=== PATIENT | female | born 1995 | race Caucasian/White ===

== ENCOUNTER 2024-09-26 16:37 | Emergency (ER) | payer SELFPAY ==
[2024-09-26 16:45] VITALS: BP 123/71; PULSE 101; RESP 16; TEMP 36.5; O2SAT 100
--- NOTE | 2024-09-26 17:44 | ED.ABDPAIN ---
HPI - Abdominal Pain General Chief Complaint: Abdominal Pain Stated Complaint: abd pain Time Seen by Provider: 09/26/24 17:44 Focused HPI: This is a 28 year old female that presents to the ER for abdominal pain. Reports epigastric pain ongoing all day. Reports some loose stool today. No previous abdominal surgeries. Denies fever, vomiting. GENERAL: Well-appearing, well-nourished, and in no acute distress. HEAD: Normocephalic, atraumatic. CHEST: Clear to auscultation. ?No respiratory distress. HEART: Regular rate and rhythm.? NEURO: ?Alert and oriented x3. Patient screened in triage and initial orders placed.? ?Additional care and disposition to be based upon?diagnostic testing and treatment. Related Data Home Medications ?Medication ?Instructions ?Recorded ?Confirmed ?Last Taken ?Type norgestimate-ethinyl estradiol 1 tablet PO DAILY 09/29/20 Unknown History 0.18 mg/0.215mg/0.25mg-35 mcg(28)tablet (Tri-Sprintec (28)) Allergies Allergy/AdvReac Type Severity Reaction Status Date / Time No Known Allergies Allergy Verified 01/13/22 13:09 [facility], [facility] Surgical History Surgical History (System 01/13/22 @ 13:09 by Janeth Britt) History of repair of ACL 2009 Social History Social History (System 01/13/22 @ 13:09 by Janeth Britt) Smoking status: Never smoker Alcohol intake: current Substance use: never Course Vital Signs Vital signs: Vital Signs Temperature 97.7 F 09/26/24 16:45 Pulse Rate 101 H 09/26/24 16:45 Respiratory Rate 16 09/26/24 16:45 Blood Pressure 123/71 09/26/24 16:45 Pulse Oximetry 100 09/26/24 16:45 Temperature 97.7 F 09/26/24 16:45 Pulse Rate 101 H 09/26/24 16:45 Respiratory Rate 16 09/26/24 16:45 Blood Pressure 123/71 09/26/24 16:45 Pulse Oximetry 100 09/26/24 16:45 MDM - Abdominal Pain MDM Narrative Medical decision making narrative: Patient left after initial screening exam and before any further evaluation or management Discharge Plan Discharge Clinical Impression: Acute epigastric pain Patient Disposition: Elopement After Seen by Prov Condition: Guarded Prognosis Instructions: Antibiotic Form Patient Language: Khmer Prescriptions: No Action norgestimate-ethinyl estradiol [Tri-Sprintec (28)] 0.18/0.215/0.25 mg-35 mcg (28) tablet 1 tablet PO DAILY Follow-up/Referrals: PHYSICIAN NOT ON STAFF,NONSTAFF [Primary Care Provider] -
--- NOTE | 2024-09-26 19:36 | PC.NURSE ---
Pt was called twice to go back to a room and did not show up.
== END 2024-09-26 21:16 | disposition left against medical advice (07) ==
LOC: ANHED 20:59
DX: R10.13 Epigastric pain (principal)
CPT/HCPCS: 99199

== ENCOUNTER 2025-03-09 14:00 | Emergency (ER) | payer OTHER, SELFPAY ==
--- NOTE | ~2025-03-09 | XR_ITS ---
XR ankle LT min 3V Ordering provider: Elvia Baca APRN History: . 5 days inverse injury lateral malleolus . Comparison: None. FINDINGS: BONES: No acute fracture or dislocation. JOINT SPACES: The ankle mortise is normal. SOFT TISSUES: Normal. IMPRESSION: No acute osseous abnormality left ankle. Reviewed, dictated and finalized at location A.
--- OUTSIDE RECORDS SUMMARY | 2025-03-09 14:04 | XMS_ITS | Clinical Summary ---
Author Organization [address] Address [address] [place] [phone] Care Team Providers Care Bookkeeping Machine Mechanic Name Role Phone Eleuterio Mo MD Primary Care Provider +1- [phone] Allergies No known active allergies Medications sertraline (ZOLOFT) 50 mg tablet Take 1 tablet (50 mg total) by mouth daily 3 Active hydrOXYzine (ATARAX) 25 mg tablet TAKE 1 TABLET BY MOUTH THREE TIMES DAILY NEEDED FOR ANXIETY. MAY CAUSE DROWSINESS 3 Active dextroamphetami ne-amphetamine (ADDERALL) 10 mg tablet TAKE 2 TABLETS BY MOUTH EVERY MORNING AND TAKE 1 TABLET BY MOUTH EVERY DAY AT LUNCH 3 Active predniSONE (DELTASONE) 10 mg tablet Take 5 tabs (50mg) daily for 2 days, then take 4 tabs (40mg) daily for 2 days. Continue to decrease by 1 tab (10mg) every 2 days until gone. 30 tablet 3 Active azithromycin (ZITHROMAX) 250 mg tablet Take 2 tabs (500 mg) by mouth today, than 1 tab (250 mg) daily for 4 days. 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 Gender Identity Not on file Sexual Orientation Not on file Obstetrics History Last Filed Vital Signs Vital Sign Reading Time Taken Comments Blood Pressure 120/70 02/13/2023 2:51 PM CDT Pulse 90 02/13/2023 2:51 PM CDT Temperature 36.8 C (98.3 F) 02/13/2023 2:51 PM CDT Respiratory Rate 14 02/13/2023 2:51 PM CDT Oxygen Saturation 99% 02/13/2023 2:51 PM CDT Inhaled Oxygen Concentration - - Weight 57.2 kg (126 lb) 02/13/2023 2:51 PM CDT Height 175.3 cm (5' 9 ) 02/13/2023 2:51 PM CDT Body Mass Index 18.61 02/13/2023 2:51 PM CDT Plan of Treatment Health Maintenance Due Date Last Done Comments Cervical Cancer Screening 1995 Depression Screening 1995 Hepatitis C Screening 1995 DTaP/Tdap/Td Vaccine (1 - Tdap) 2006 Varicella Vaccines (1 of 2 - 13+ 2-dose series) 2008 Hepatitis B Screening 2013 Regular Well Visit/Exam 18-64 2013 Covid-19 Vaccine (2023-2 5 season) 2024 11/12/2020, 10/25/2020 Influenza Vaccine (Season Ended) 2025 HPV Vaccines Aged Out No longer eligi ble based on patient's age to complete this topic Pneumococcal vaccine <65 Aged Out No longer eligible based on patient's age to complete this topic Insurance [facility] Care Teams Bookkeeping Machine Mechanic Relationship Specialty Start Date End Date Eleuterio Mo MD [address] [facility] [place] [address] PCP - General Family Medicine 02/13/23
--- OUTSIDE RECORDS SUMMARY | 2025-03-09 14:04 | XMS_ITS | Referral Summary ---
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
--- NOTE | 2025-03-09 14:12 | ED_ITS ---
HPI - Extremity Injury (Lower) General Chief Complaint: Extremity Injury, Lower Stated Complaint: ankle injury Time Seen by Provider: 03/09/25 14:16 Source: patient, RN notes reviewed and old records reviewed Mode of arrival: ambulatory Limitations: no limitations History of Present Illness HPI Narrative: 29-year-old female presents to the [facility] with pain, swelling to the left ankle for 5 days. Patient states that she rolled her ankle while walking. Onset (ago): day(s) (5) Treatments prior to arrival: cold therapy Related Data Home Medications ?Medication ?Instructions ?Recorded ?Confirmed ?Last Taken ?Type levonorgestrel (Mirena) 1 device intrauterine ONCE 03/09/25 03/09/25 Unknown Hi story Allergies Allergy/AdvReac Type Severity Reaction Status Date / Time No Known Allergies Allergy Verified 03/09/25 14:13 Review of Systems Review of Systems: All systems reviewed & are unremarkable except as noted in HPI and below Constitutional: Constitutional: Reports no additional constitutional complaints ENT: Reports system reviewed and no additional complaints, except as documented Cardiovascular: Cardiovascular: Reports no additional cardiovascular complaints, Denies chest pain and Denies dyspnea Respiratory: Respiratory: Reports no additional respiratory complaints, Denies chest congestion, Denies cough and Denies dyspnea Musculoskeletal: Musculoskeletal: Reports as per HPI, Reports arthralgias and Reports joint swelling Integumentary/Breasts: Skin/Breast: Reports system reviewed and no additional complaints, except as docu PMFSH Surgical History Surgical History History of repair of ACL 2009 Social History Social History Smoking status: Never smoker Alcohol intake: current Substance use: never Comments At the time of my signature, I reviewed and agree with the nursing past medical, surgical, social, and family history. There is no relevant family history pertinent to the patient complaint. Exam Const: General: cooperative, healthy appearing, comfortable, no acute distress, well developed, alert and well nourished Nutritional Appearance: well nourished Orientation/consciousness: patient oriented x3 Limitations: no limitations HENMT: Head: normal to inspection Eyes: General: appearance normal, both eyes and all related structures Alignment and Position: alignment normal Neck: Neck: normal visual inspection, full ROM, no lymphadenopathy and no meningeal signs Chest: Chest palpation & inspection: normal inspection of the chest Resp: Effort & Inspection: normal respiratory effort and able to speak in complete sentences Skin: General skin exam: normal color and no rashes or lesions noted Neuro: General: patient oriented x3, gait normal, moves all extremities and no meningeal signs Cognition (Neuro): normal cognition Speech: normal speech Gait exam (Neuro): Normal gait present Extrem: General: normal to inspection, full ROM, capillary refill normal and normal gait Right lower extremity: lower leg Details: normal to inspection; no erythema and no tenderness, ankle Details: tenderness Location: of the lateral malleolus, swelling Details: laterally, normal ROM and ecchymosis (Lateral) and foot Details: normal capillary refill, toes with normal ROM, ecchymosis (Proximal lateral foot), vascular exam Details: dorsalis pedis pulse present and normal capillary refill and motor-sensory exam Details: light-touch normal; no foreign bodies and no puncture wound Psych: Appearance: grossly normal and well kempt Mental Status: mental status grossly normal Speech and movement: Normal speech and movement present and Clear speech present Affect: normal affect Attitude: cooperative Course Course Level of Care: Express Care Visit Vital Signs Vital signs: Vital Signs Temperature 97.3 F L 03/09/25 14:13 Pulse Rate 118 H 03/09/25 14:13 Respiratory Rate 18 03/09/25 14:13 Blood Pressure 136/89 03/09/25 14:13 Pulse Oximetry 100 03/09/25 14:13 Oxygen Delivery Room Air 03/09/25 14:13 Temperature 97.3 F L 03/09/25 14:13 Pulse Rate 118 H 03/09/25 14:13 Respiratory Rate 18 03/09/25 14:13 Blood Pressure 136/89 03/09/25 14:13 Pulse Oximetry 100 03/09/25 14:13 Oxygen Delivery Room Air 03/09/25 14:13 Reviewed MDM - Extremity Injury (Lower) MDM Narrative Medical decision making narrative: Patient sitting in exam room. Patient is nontoxic, vitals are stable. Patient with 5 day history of left ankle pain after injury. X-ray negative Patient appropriate for outpatient treatment with close follow-up Discharge instructions reviewed with patient, as well as provided in writing per nursing staff. The instructions also include specific and strict return/GO TO THE ER as well as f/u information. All questions have been answered, and the patient deny any further questions with discharge and discharge plan. Some parts of this dictation were generated by voice recognition software and may contain typographical and/or grammatical inaccuracies. Differential Diagnosis Differential diagnosis: Likely ankle sprain and strain and ankle fracture Imaging Data Radiologist's impression: XR ankle LT min 3V Ordering provider: Elvia Baca APRN History: . 5 days inverse injury lateral malleolus . Comparison: None. FINDINGS: BONES: No acute fracture or dislocation. JOINT SPACES: The ankle mortise is normal. SOFT TISSUES: Normal. IMPRESSION: No acute osseous abnormality left ankle. Critical Care Time Critical Care Time Critical Care Time: No Discharge Plan Discharge Clinical Impression: Left ankle sprain Patient Disposition: Home Condition: Stable Instructions: Antibiotic Form, Ankle Sprain (ED) Additional Instructions: Your Xray did not show a fracture. Wear good supportive shoes at all times. Ice should be applied to help reduce swelling. It can be used for 20 to 30 minutes, every 2-3 hours while awake. Do not apply ice directly to your skin. ankle braces or norberto-wraps will help support your injured ankle. You can alternate ibuprofen 600mg and Tylenol 650mg every 4 hours as needed for pain Please schedule a follow-up visit with your personal physician for further evaluation and treatment within 2 weeks especially if symptoms persist. For new or worsening symptoms go directly to the emergency room Patient Language: Chinese Prescriptions: No Action Mirena 21 mcg/24hr (up to 8 yrs) 52 mg intrauterine device 1 device intrauterine ONCE Rx Instructions: as a single dose Follow-up/Referrals: UNKNOWN,DOCTOR [Primary Care Provider] - Stand Alone Forms: Work/School Release IP Time of Disposition: 14:46
[2025-03-09 14:13] VITALS: BP 136/89; PULSE 118; RESP 18; TEMP 36.3; O2SAT 100
== END 2025-03-09 14:50 | disposition home or self-care (01) ==
PROVIDERS: Emergency Provider Nurse Practitioner
DX: S93.402A Sprain of unspecified ligament of left ankle, initial encounter (principal); X50.9XXA Other and unspecified overexertion or strenuous movements or postures, initial encounter; Y93.01 Activity, walking, marching and hiking
CPT/HCPCS: 73610; 99213; G0463

== ENCOUNTER 2025-04-29 00:18 | Emergency (ER) | payer OTHER, SELFPAY ==
--- OUTSIDE RECORDS SUMMARY | 2025-04-29 00:20 | XMS_ITS | Referral Summary ---
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
--- OUTSIDE RECORDS SUMMARY | 2025-04-29 00:20 | XMS_ITS | Clinical Summary ---
Author Organization [facility] Address [facility] [place] [address] Care Team Providers Care Billing Associate Name Role Phone Eleuterio Mo MD Primary Care Provider [phone] [phone] Allergies No known active allergies Medications amphetamine-dex troamphetamine (ADDERALL) 10 MG tablet Take 1 tablet (10 mg total) by mouth. 2 tablets in the am and 2 tablets at lunch 09/24/2024 Active hydrOXYzine (ATARAX) 25 MG tablet Take 1 tablet (25 mg total) by mouth every 6 (six) hours as needed. 08/24/2024 Active Active Problems Problem Noted Date Diagnosed Date Gallstone pancreatitis (HHS/HCC) 10/24/2024 Social History Tobacco Use Types Packs/Day Years Used Date Smoking Tobacco: Never Passive Smoke Exposure: Never Smokeless Tobacco: Never Tobacco Cessation:Counseling Given: Not Answered Alcohol Use Standard Drinks/Week Comments Yes 0 (1 standard drink = 0.6 oz pur e alcohol) weekly Comments No Sex and Gender Information Value Date Recorded Sex Assigned at Female 11/15/2024 6:25 AM FREIGHT ENGINEER Legal Sex Female 10:42 AM FREIGHT ENGINEER Gender Identity Not on file Sexual Orientation Not on file Last Filed Vital Signs Vital Sign Reading Time Taken Comments Blood Pressure 114/82 11/28/2024 9:17 AM FREIGHT ENGINEER Pulse 105 11/28/2024 9:17 AM FREIGHT ENGINEER Temperature 36.4 C (97.5 F) 11/15/2024 10:20 AM FREIGHT ENGINEER Respiratory Rate 16 11/28/2024 9:17 AM FREIGHT ENGINEER Oxygen Saturation 99% 11/28/2024 9:17 AM FREIGHT ENGINEER Inhaled Oxygen Concentration - - Weight 57.4 kg (126 lb 8 oz) 11/28/2024 9:17 AM FREIGHT ENGINEER Height 175.3 cm (5' 9) 11/28/2024 9:17 AM FREIGHT ENGINEER Body Mass Index 18.68 11/28/2024 9:17 AM FREIGHT ENGINEER Plan of Treatment Health Maintenance Due Date Last Done Comments Annual Physical 1998 Hepatitis C 2013 DTaP, Tdap and Td Vaccines ( 1 - Tdap) 2014 Hepatitis B Vaccines (1 of 3 - 19+ 3-dose series) 2014 COVID-19 Vaccine ( - 2023-2 5 season) 2024 PHQ-2 (Physician [place]) 10/17/2024 Cervical Cancer Screening Pa p Smear (Age 21 to 29) Every 3 Years 08/19/2026 08/19/2023 Cervical Cancer Screening 08/19/2026 HPV Vaccines Aged Out No longer eligi ble based on patient's age to complete this topic Meningococcal B Vaccine Aged Out No l onger eligible based on patient's age to complete this topic Meningococcal Vaccine Aged Out No shaun sebastian eligible based on patient's age to complete this topic Pneumococcal Vaccine: Pediat rics (0 to 5 Years) and At-Risk Patients (6 to 49 Years) Aged Out No longer eligi ble based on patient's age to complete this topic RSV Immunizations Under 20 Months Aged Out No longer eligible based on patient's age to complete this topic Insurance Care Teams Billing Associate Relationship Specialty Start Date End Date Eleuterio Mo MD [address] [place] [address] [place] [address] PCP - General FAMILY PRACTICE 10/24/24
--- OUTSIDE RECORDS SUMMARY | 2025-04-29 00:20 | XMS_ITS | Clinical Summary ---
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
[2025-04-29 00:26] VITALS: BP 140/99; PULSE 105; RESP 18; TEMP 36.6; O2SAT 100
[2025-04-29 01:40] LABS: Hematocrit 36.5 % (37.0-47.0); Hemoglobin 12.3 g/dL (12.0-15.0); Immature Granulocyte Percent A 0.3 % (0-0.5); Lymphocytes Absolute Auto 2.36 K/mm3 (0.9-3.2); Mean Corpuscular HGB Conc 33.7 g/dl (32-36); Mean Corpuscular Hemoglobin 31.9 pg (26-34); Mean Corpuscular Volume 94.8 fl (80-100); Nucleated Red Blood Cells Absolute Auto 0.000 K/mm3 (0.0-0.012); Nucleated Red Blood Cells Perc 0.0 % (0.0-0.2); Platelet Count Result 271 k/mm3 (150-375); Red Blood Count 3.85 M/mm3 (4.2-5.4); White Blood Count 6.5 K/mm3 (4.5-10.0)
[2025-04-29] MEDS: SODIUM CHLORIDE 0.9% IV 1,000 ML 999 ML IV CONT (01:51)
[2025-04-29 01:52] LABS: Alanine Aminotransferase 24 U/L (6-35); Albumin Level 4.5 g/dL (3.5-5.1); Alkaline Phosphatase 65 U/L (38-126); Anion Gap 10 mmol/L (4-12); Aspartate Amino Transferase 30 U/L (14-36); Bilirubin,Total 0.3 mg/dL (0.2-1.3); Blood Urea Nitrogen 9 mg/dL (7-17); Calcium 9.6 mg/dL (8.4-10.2); Carbon Dioxide 21 mmol/L (22-30); Chloride 108 mmol/L (98-107); Estimated CRCL calculation 88 ml/min; Estimated Glomerular Filt Rate > 60; Glucose 109 mg/dL (65-110); Magnesium 1.9 mg/dL (1.6-2.3); Potassium 3.4 mmol/L (3.4-5.0); Sodium 139 mmol/L (137-145); Total Protein 7.5 g/dL (6.3-8.2)
--- NOTE | 2025-04-29 01:57 | ED_ITS ---
HPI - Extremity Problem General Chief complaint: Extremity Problem,Nontraumatic Stated complaint: numbness in left hand, panic attacks, light headed Time Seen by Provider: 04/29/25 01:24 History of Present Illness HPI Narrative: Patient is a 29-year-old female who presents the emergency department this evening complaining of an episode of tensing of her left, describing a carpopedal spasm. Patient admits that symptoms started when she got off work and states that she did not eat much today or drink much. This episode made the patient anxious and she started to hyperventilate only worsening her symptoms and started to have hot flashes and a panic attack. Patient states that she is currently back to her baseline and denying any symptoms at this time. States she just wanted to get checked out and make sure every was fine. Related Data Home Medications ?Medication ?Instructions ?Recorded ?Confirmed ?Last Taken ?Type levonorgestrel (Mirena) 1 device intrauterine ONCE 03/09/25 03/09/25 Unknown History Allergies Allergy/AdvReac Type Severity Reaction Status Date / Time No Known Allergies Allergy Verified 04/29/25 01:27 Review of Systems 2 Review of Systems: All systems are reviewed and are negative unless stated otherwise in the HPI. REPLACED BY [facility] Surgical History Surgical History History of repair of ACL 2009 Social History Social History Smoking status: Never smoker Alcohol intake: current Substance use: never Exam 2 Narrative: General: Alert, awake, afebrile, in no acute distress. HEENT: PERRL, no rhinorrhea, no post nasal drip, oropharynx clear. Neck: Trachea midline, no JVD, no lymphadenopathy. Cardiovascular: Tachycardic with regular rhythm, no murmurs, rubs or gallops, no peripheral edema. Respiratory: Clear to auscultation bilaterally, no tachypnea, no wheezing, no rhonchi, no rubs, no respiratory distress. Abdomen: Soft, nontender, nondistended, no rebound, no guarding, no peritoneal signs. Musculoskeletal: No joint swelling or deformity, normal muscle tone. Skin: No rashes or petechia, no signs of infection. Psychiatric: Alert and oriented, normal behavior and judgment for situation. Neurological: Alert and oriented to person, place, and time. Follows all commands. No focal deficits, speech is clear and fluent. Course Vital Signs Vital signs: Vital Signs Temperature 97.8 F 04/29/25 00:26 Pulse Rate 105 H 04/29/25 00:26 Respiratory Rate 18 04/29/25 00:26 Blood Pressure 140/99 H 04/29/25 00:26 Pulse Oximetry 100 04/29/25 00:26 Temperature 97.8 F 04/29/25 00:26 Pulse Rate 105 H 04/29/25 00:26 Respiratory Rate 18 04/29/25 00:26 Blood Pressure 140/99 H 04/29/25 00:26 Pulse Oximetry 100 04/29/25 00:26 MDM - Extremity (Nontraumatic) MDM Narrative Medical decision making narrative: The patient was evaluated by myself in the emergency department. History is obtained from patient who is an independent historian and physical exam was performed. External medical records were reviewed at this time. IV was established and pertinent tests were ordered. Patient was administered 1 L IV fluid bolus with normal saline. Laboratory results obtained revealing no acute process. Electrolytes within normal limits. Differential diagnosis considerations include hypocalcemia, hyperventilation/anxiety/panic attack, dehydration, electrolyte derangements. Comorbidities impacting this visit include none. I have evaluated and discussed social determinants of health with the patient that could potentially impact subsequent diagnosis and treatment plans. On repeat assessment of the patient, reevaluation revealed that the patient is doing well and is in no acute distress. Patient symptoms have improved since she arrived to our emergency department. Repeat vital signs were all reviewed and noted to be stable. Differential diagnosis and treatment plan were discussed with the patient at bedside. Patient agrees with discussion and after shared medical decision making agrees with discharge. All questions were answered to the patient's satisfaction. Patient will follow up with her PCP in 3-5 days. Patient was provided with strict return precautions and instructed to return to the emergency department if any new or worsening symptoms develop. The patient was discharged in stable condition. Lab Data 04/29/25 01:35 04/29/25 01:35 Labs: Lab Results 04/29/25 Range/Units 01:35 WBC 6.5 (4.5-10.0) K/mm3 RBC 3.85 L (4.2-5.4) M/mm3 Hgb 12.3 (12.0-15.0) g/dL Hct 36.5 L (37.0-47.0) % MCV 94.8 (80-100) fl MCH 31.9 (26-34) pg MCHC 33.7 (32-36) g/dl RDW 12.5 (11.5-14.5) % Plt Count 271 (150-375) k/mm3 MPV 9.1 (7.4-10.4) fl Immature Gran % (Auto) 0.3 (0-0.5) % Neut % (Auto) 51.4 (45.5-73.1) % Lymph % (Auto) 36.2 (18.3-44.2) % [place] % (Auto) 8.9 H (2.6-8.5) % Eos % (Auto) 2.1 (0-4.4) % Baso % (Auto) 1.1 (0.2-1.2) % Lymph # (Auto) 2.36 (0.9-3.2) K/mm3 [place] # (Auto) 0.6 (0.1-0.6) K/mm3 Eos # (Auto) 0.1 (0-0.3) K/mm3 Baso # (Auto) 0.1 (0.0-0.1) K/mm3 Abs Immat Gran (auto) 0.02 (0.00-0.031) K/mm3 Absolute Neuts (auto) 3.4 (1.3-6.7) K/mm3 Absolute Nucleated RBC 0.000 (0.0-0.012) K/mm3 Nucleated RBC % 0.0 (0.0-0.2) % Sodium 139 (137-145) mmol/L Potassium 3.4 (3.4-5.0) mmol/L Chloride 108 H (98-107) mmol/L Carbon Dioxide 21 L (22-30) mmol/L Anion Gap 10 (4-12) mmol/L BUN 9 (7-17) mg/dL Creatinine 0.72 (0.7-1.0) mg/dL Estim Creat Clear Calc 88 ml/min Estimated GFR > 60 (59 - ) Glucose 109 (65-110) mg/dL Calcium 9.6 (8.4-10.2) mg/dL Magnesium 1.9 (1.6-2.3) mg/dL Total Bilirubin 0.3 (0.2-1.3) mg/dL AST 30 (14-36) U/L ALT 24 (6-35) U/L Alkaline Phosphatase 65 (38-126) U/L Total Protein 7.5 (6.3-8.2) g/dL Albumin 4.5 (3.5-5.1) g/dL Discharge Plan Discharge Clinical Impression: Carpopedal spasm Patient Disposition: Home Condition: Improved Instructions: Antibiotic Form, Carpopedal Spasm (ED) Additional Instructions: Please follow-up with your family doctor within the next 3-5 days. Return emergency department if any new or worsening symptoms develop. Patient Language: Mozambican Prescriptions: No Action Mirena 21 mcg/24hr (up to 8 yrs) 52 mg intrauterine device 1 device intrauterine ONCE Rx Instructions: as a single dose Follow-up/Referrals: UNKNOWN,DOCTOR [Primary Care Provider] - 3 Days Time of Disposition: 02:03
--- OUTSIDE RECORDS SUMMARY | 2025-04-29 02:19 | XMS_ITS | Referral Summary ---
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
--- OUTSIDE RECORDS SUMMARY | 2025-04-29 02:19 | XMS_ITS | Clinical Summary ---
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 Care Teams Shotgun Shell Loading Machine Operator Relationship Specialty Start Date End Date Eleuterio Mo MD [address] [facility] [place] [address] PCP - General Family Medicine 02/13/23
--- OUTSIDE RECORDS SUMMARY | 2025-04-29 02:19 | XMS_ITS | Clinical Summary ---
Author Organization [facility] Address [facility] [place] [address] Care Team Providers Care Umbrella Tipper Name Role Phone Eleuterio Mo MD Primary Care Provider +1 [phone] Allergies No known active allergies Medications amphetamine-dex [...] Sex Assigned at Female 11/15/2024 6:25 AM TOUR CONSULTANT Legal Sex Female 10:42 AM TOUR CONSULTANT Gender Identity Not on file Sexual Orientation Not on file Last Filed Vital Signs Vital Sign Reading Time Taken Comments Blood Pressure 114/82 11/28/2024 9:17 AM TOUR CONSULTANT Pulse 105 11/28/2024 9:17 AM TOUR CONSULTANT Temperature 36.4 C (97.5 F) 11/15/2024 10:20 AM TOUR CONSULTANT Respiratory Rate 16 11/28/2024 9:17 AM TOUR CONSULTANT Oxygen Saturation 99% 11/28/2024 9:17 AM TOUR CONSULTANT Inhaled Oxygen Concentration - - Weight 57.4 kg (126 lb 8 oz) 11/28/2024 9:17 AM TOUR CONSULTANT Height 175.3 cm (5' 9) 11/28/2024 9:17 AM TOUR CONSULTANT Body Mass Index 18.68 11/28/2024 9:17 AM TOUR CONSULTANT Plan of Treatment Health Maintenance Due Date Last Done Comments Annual Physical 1998 Hepatitis C 2013 DTaP, Tdap and Td Vaccines ( 1 - Tdap) 2014 Hepatitis B Vaccines (1 of 3 - 19+ 3-dose series) 2014 COVID-19 Vaccine ( - 2023-2 5 season) 2024 PHQ-2 (Physician [place]) 10/17/2024 Cervical Cancer Screening [facility] p Smear [...] to complete this topic Insurance Care Teams Umbrella Tipper Relationship Specialty Start Date End Date Eleuterio Mo MD [address] [place] [address] [place] [address] PCP - General FAMILY PRACTICE 10/24/24
== END 2025-04-29 02:54 | disposition home or self-care (01) ==
LOC: ANHED 02:18
PROVIDERS: Emergency Provider Emergency Medicine
DX: R25.2 Cramp and spasm (principal)
CPT/HCPCS: 36415; 80053; 83735; 85025; 96360; 99283; J7030